=== PATIENT | female | born 1995 | race Caucasian/White ===

== ENCOUNTER 2024-09-18 20:46 | Emergency (ER) | payer SELFPAY, OTHER ==
[2024-09-18] MEDS ORDERED: NA CHLORIDE 0.9% 1,000 ML ONE (22:22)
[2024-09-18] MEDS ORDERED: ONDANSETRON 4 MG/2 ML VIAL ONE (22:22)
[2024-09-18 22:45] LABS: Absolute Monocytes 0.3 K/uL (0.1-1.3); Absolute Neutrophil 7.3 K/uL (1.8-8.0); Basophils % 0.5 % (0-1.3); Eosinophils % 0.1 % (0-4.4); Hematocrit 38.1 % (36.0-45.0); Hemoglobin 12.7 g/dL (12.0-15.0); Lymphocytes % 11.7 % (15.3-44.8); MCH 28.8 pg (27.0-35.0); MCHC 33.4 g/dL (32.0-36.0); MCV 86.2 fL (80-100); MPV 8.4 fL (7.6-11.3); Monocytes % 3.2 % (3.3-12.3); Neutrophils % 84.5 % (41.7-73.7); Platelets 243 thou/uL (152-406); RBC Red Blood Cell Count 4.42 M/uL (3.86-4.86); Red Cell Distribution Width 13.7 % (12.1-15.2)
[2024-09-18 22:58] LABS: Albumin 3.7 g/dL (3.4-5.0); Albumin/Globulin Ratio 1.1 (1.1-1.8); Anion Gap 8.4 mEq/L (5.0-15.0); Bilirubin Total 0.4 mg/dL (0.2-1.0); Globulin 3.4 g/dL (2.3-3.5); Potassium 3.4 mEq/L (3.5-5.1); Protein, Total 7.1 g/dL (6.4-8.2)
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
--- NOTE | 2024-09-18 23:50 | RAD REPORT ---
EXAM DESCRIPTION: Head C Spine Mpr Wo Con CLINICAL HISTORY: 29 years Female, TRAUMA TECHNIQUE: Helical CT axial images are obtained of the brain and cervical spine without IV contrast. Multiplanar reconstruction. This exam was performed according to our departmental dose-optimization program, which includes automated exposure control, adjustment of the mA and/or kV according to patie nt size and/or use of iterative reconstruction technique. COMPARISON: None. FINDINGS: BRAIN: BRAIN: No infarcts. No parenchymal hemorrhage, intra-axial mass, mass effect, or midline shift. No ab normal extra-axial fluid collections. VENTRICLES: Ventricles are normal in size and configuration. No hydrocephalus. CALVARIUM: Bone windows show no skull fracture or calvarial lesions.] PARANASAL SINUSES AND MASTOIDS: Visualized paranasal sinuses are clear. Mastoid air cells are clear . CERVICAL SPINE: VERTEBRA: There is straightening of the cervical spine. No acute fracture or subluxation. Cervical vertebra are normal in height. Craniocervical junction is intact. Normal vertebral body morphology. DISCS: Intervertebral discs are well-preserved. LEVELS: From the C2-C3 through the C7-T1 levels, no canal or foraminal stenosis. SOFT TISSUES: Paravertebral soft tissues are unremarkable. IMPRESSION: 1. Negative noncontrast CT examination brain. 2. No acute fracture or CT evidence of traumatic injury to cervical spine. 3. Straightening of cervical spine. Otherwise, negative examination. Electronically signed by: oJe Padilla MD 09/18/2024 11:36 PM [facility] N Due to temporary technical issues with the PACS/in3Depth reporting system, reports are being shilpa d by the in-house radiologist without review as a courtesy to ensure prompt reporting the interpreting radiologist is fully responsible for the content of the report. Transcribed Date/Time: 09/18/2024 11:50 PM
[2024-09-19 07:41] VITALS: BP 112/78; TEMP 98; O2SAT 100
== END 2024-09-19 00:06 | disposition home or self-care (01) ==
LOC: ER 20:46
DX: S06.0X0A Concussion without loss of consciousness, initial encounter (principal); R11.2 Nausea with vomiting, unspecified; V49.40XA Driver injured in collision with unspecified motor vehicles in traffic accident, initial encounter
CPT/HCPCS: 36415; 70450; 72125; 80053; 83690; 84703; 85025; 96361; 96374; 99284; J2405; J7030